=== PATIENT | female | born 1955 | race Hispanic/Latino ===

== ENCOUNTER 2018-10-04 07:28 | Observation (INO) | payer BC ==
[~2018-10-04] VITALS: Ht 157.5 cm; Wt 85.3 kg
[~2018-10-04 07:28] MED LIST: AMLODIPINE BESYL5 MG PO; BACITRACIN 50,000 UNIT VIAL ONE; CELEBREX100 MG PO; HYDROCHLOROTHIA25 MG; LOSARTAN POTASS25 MG PO; PANTOPRAZOLE SO40 MG PO; SINGULAIR10 MG; SODIUM CHLORIDE 0.9% 500ML 500 ML ONE; TRANEXAMIC ACID 1,000 MG/10 ML ML ONE; VANCOMYCIN HCL 1,000 MG ONE
[2018-10-04] MEDS ORDERED: ROPIVACAINE 246.25 MG, EPINEPHRINE HCL 1:1000 1ML 0.5 MG, CLONIDINE HCL 0.08 MG, KETORO... INJ ONE ×5 (07:30)
[2018-10-04] MEDS ORDERED: CEFAZOLIN SOD 2 GM/D5W 50ML 50 ML IV ONE (07:56)
[2018-10-04] MEDS ORDERED: DEXAMETHASONE SOD PHOS 10 MG/1 ML VIAL ONE (07:56)
[2018-10-04] MEDS ORDERED: CELECOXIB 200 MG CAP ONE (07:56)
[2018-10-04] MEDS ORDERED: GABAPENTIN 300 MG CAP ONE (07:56)
[2018-10-04] MEDS ORDERED: ZOLPIDEM TARTRATE 5 MG TAB PO PRN (11:15)
[2018-10-04] MEDS ORDERED: HYDROCODONE/APAP 5MG-325MG TAB PO PRN (11:15)
[2018-10-04] MEDS ORDERED: DIPHENHYDRAMINE HCL INJ 50 MG/ML VIAL IM/IV PRN (11:15)
[2018-10-04] MEDS ORDERED: KETOROLAC TROMETHAMINE 30 MG/ML VIAL IV PRN (11:15)
[2018-10-04] MEDS ORDERED: DOCUSATE SODIUM 100 MG CAP PO PRN (11:15)
[2018-10-04] MEDS ORDERED: ONDANSETRON HCL INJ 2MG/ML 2ML 2 MG/ML VIAL IV PRN (11:15)
[2018-10-04] MEDS ORDERED: PROMETHAZINE HCL (IM) 25 MG/ML VIAL INJ PRN (11:15)
[2018-10-04] MEDS ORDERED: ACETAMINOPHEN 650 MG SUPP PR PRN (11:15)
--- NOTE | 2018-10-04 11:53 | Diagnostic Imaging Report ---
Exam: AP and lateral portable views of the left knee dated 10/04/2018 at 11:30 AM History: Knee replacement Comparison: None available Findings: Patient is status post knee replacement with good position of the femoral and tibial prosthesis. Surgical skin paul are noted anteriorly and there is air within the joint space. Impression: Status post left total knee replacement. Signed by: Dr. Kameron Munoz DO on 10/04/2018 11:50 AM
--- OUTSIDE RECORDS SUMMARY | 2018-10-04 12:12 | XMS REPORT ---
Author Author [facility] Address Unknown Phone Unavailable Care Team Providers Care Environmental Assistant Name Role Phone MICA HERNANDEZ Unavailable Unavailable Problems This patient has no known problems. Allergies, Adverse Reactions, Alerts This patient has no known allergies or adverse reactions. Medications This patient has no known medications. Results Test Description Test Time Test Comments Text Results Atomic Results Result Comments KNEE LEFT 1-2 VIEWS 2018-10-04 11:48:00 [place] [address] Patient Name: SACHIN HACKETT MR #: [id number] : 1955 Age/Sex: 63/F Req #: [id number] [facility] Physician: Ordered by: MICA HERNANDEZ MD Report #: [id number] Location: OR Room/Bed: Procedure: [id number] DX/KNEE LEFT 1-2 VIEWS Exam Date: 10/04/18 Exam Time: 1120 REPORT STATUS: Signed Exam: AP and lateral portable views of the left knee dated 10/04/2018 at 11:30 AM History: Knee replacement Comparison: None available Findings: Patient is status post knee replacement with good position of the femoral and tibial prosthesis. Surgical skin paul are noted anteriorly and there is air within the joint space. Impression: Status post left total knee replacement. Signed by: Dr. Orquidea Munoz DO on 10/04/2018 11:50 AM Dictated By: ORQUIDEA MUNOZ DO 1150 Transcribed By: CHIDI on 10/04/18 1150 COPY TO: MICA HERNANDEZ MD
--- NOTE | 2018-10-04 12:45 | NUR ---
RECEIVED PATIENT FROM PACU. PATIENT A/O X3, EVEN RESPIRATIONS, 100% 2LNC. VITALS STABLE. RIGHT HAND 20 GAUGE IV WITH NS @ 100 MS/HR.FOOT PUMPS IN PLACE BILATERALLY, LEFT KNEE DRESSING INTACT. BOWEL SOUNDS ACTIVE, NO EDEMA. FAMILY AT BEDSIDE. CALL LIGHT IN REACH WILL CONTINUE TO MONITOR.
[2018-10-04 12:59] VITALS: BP 111/53
[2018-10-04] MEDS ORDERED: PNEUMOCOCCAL VACCINE POLYVALENT 23 MCG/0.5 ML VIAL IM SCH (12:59)
--- NOTE | 2018-10-04 13:04 | Operative Report ---
DATE OF PROCEDURE: 10/04/2018 SURGEON: Jarrell Phillips MD TRAVERSE ROD ASSEMBLER: Wade Barroso, certified PA. PREOPERATIVE DIAGNOSIS: Osteoarthritis, left knee. POSTOPERATIVE DIAGNOSIS: Osteoarthritis, left knee. PROCEDURE: Left total knee arthroplasty. INDICATIONS: The patient is a 63-year-old lady, who has end-stage arthritis of her left knee. The findings and options have been discussed. She has failed extensive conservative management and would like to proceed with a knee replacement. The risks and benefits of the procedure have been explained. All of her questions have been answered. She states she understands and wishes to proceed. PROCEDURE IN DETAIL: The patient was brought to the operating room and placed under general anesthetic. She received prophylactic antibiotics, a regional block and tranexamic acid in the holding area. Her left lower extremity was prepped and draped in a sterile manner. A preoperative time-out was performed. The extremity was exsanguinated and a proximal tourniquet was inflated to 300 mmHg. An anterior incision with a medial parapatellar arthrotomy was made. Clear synovial fluid was removed from the joint. Soft tissue releases were performed to bring the knee up into flexion with the patella everted. While the patient had a BMI of roughly 35, much of her weight was distributed to her lower extremity. Exposure and mobilization of the knee was quite challenging. Meniscal remnants and marginal osteophytes were removed. The cruciate ligaments were sacrificed. A Hwang and Nephew posterior stabilized legion knee system was used throughout the case. An extramedullary cutting guide was used to resect the proximal tibia. The tibial base plate was noted to be a size #3. The central fin punch was impacted and attention was directed towards the distal femur. An intramedullary cutting guide was used to resect the distal femur in 5 degrees of valgus and rotation referencing of a combination of landmarks including Whitesides line, the epicondylar axis and the posterior condyles. The femoral component was a size #5. The anterior and posterior cuts were made. The notch cut was made. Trial reductions were performed. A 9 mm posterior stabilized tibial insert provided appropriate soft tissue balancing in full extension and 90 degrees of flexion. The patella was resurfaced with a 32 mm x 9 mm patellar button. The thickness was checked before and after resurfacing and was 21 mm. Patellar tracking was noted to be concentric. The trial implants were then all removed. A 100 mL premixed pericapsular MEGGAN injection was placed into the surrounding soft tissue. The knee was thoroughly irrigated with a shower tip pulsatile lavage. The knee had also been irrigated throughout the case with a spray bottle containing a diluted mixture of polymyxin and vancomycin. The components were cemented into place using a single mix of Palacos cement preloaded with antibiotics. Care was taken to remove extravasated cement. The wound was further irrigated while the cement cured. The arthrotomy was carefully closed with interrupted #1 Ethibond. The knee was put through flexion and extension to ensure a secure closure. The skin was carefully closed with subcuticular Vicryl and paul. Her skin was very thin and there was abundant subcutaneous adipose tissue. Chaffee were applied. A sterile Aquacel bandage was applied. The patient was extubated and transported to the recovery room in stable condition. Blood loss was minimal. Needle and sponge counts were correct. Jarrell Phillips MD DR/HÉCTOR /[id number]
[2018-10-04] MEDS ORDERED: LIDOCAINE HCL 2% JELLY 5 ML TUBE ONE (13:11)
[2018-10-04] MEDS ORDERED: DESFLURANE 240 ML BTL INH ONE (13:11)
[2018-10-04] MEDS ORDERED: EPHEDRINE SULFATE INJ 50 MG/10 ML SYR ONE (13:11)
[2018-10-04] MEDS ORDERED: LIDOCAINE HCL 2% LOCAL INJ 5 ML SDV VIAL INJ ONE (13:11)
[2018-10-04] MEDS ORDERED: PROPOFOL IV EMULSION 10 MG/ML 20 ML VIAL ONE (13:11)
[2018-10-04] MEDS ORDERED: ONDANSETRON HCL INJ 2MG/ML 2ML 2 MG/ML VIAL ONE (13:11)
[2018-10-04] MEDS: SODIUM CHLORIDE 0.9% 1000ML 1,000 ML IV SCH (13:23)
[2018-10-04] MEDS: ACETAMINOPHEN 1000 MG/100 ML IV SCH ×2 (13:23→18:06)
[2018-10-04] MEDS: HYDROCODONE/APAP 7.5MG-325MG 1 EA TAB PO PRN (13:32)
[2018-10-04 13:35] VITALS: BP 111/53
--- NOTE | 2018-10-04 13:35 | NUR ---
Visit made by the Spiritual Care Department Pastoral Visitor, Madina Villeda. Pt sleeping with family at bedside. PV provided pastoral presence, hospitality, and supportive listening. Pastoral Visitor informed pt's family of the scope of Collection Advisor Services and availability. NAHID ARGUELLES [facility] Spiritual Care Department O: [phone] Pager: [phone] ([phone] number calling from)
[2018-10-04 13:36] VITALS: BP 111/53
[2018-10-04] MEDS ORDERED: CEFAZOLIN SOD 1 GM/NS 50ML 50 ML IV SCH (14:00)
[2018-10-04] MEDS ORDERED: ROPIVACAINE 0.5% 5 MG/ML 30 ML SDV ONE (14:17)
[2018-10-04] MEDS ORDERED: LIDOCAINE 2% /EPINEPHRINE 20 ML SDV INJ ONE (14:17)
[2018-10-04 16:05] VITALS: BP 110/55
--- NOTE | 2018-10-04 16:15 | NUR ---
PATIENT HAS VOIDED SINCE SURGERY.
[2018-10-04] MEDS: ASPIRIN 325 MG TAB PO SCH (16:27)
[2018-10-04] MEDS: CELECOXIB 200 MG CAP PO SCH (16:27)
[2018-10-04] MEDS: CEFAZOLIN SOD 1 GM/NS 50ML 50 ML IV SCH (16:27)
--- NOTE | 2018-10-04 16:28 | NUR ---
ZOFRAN PRN GIVEN FOR NAUSEA.
[2018-10-04] MEDS ORDERED: CELECOXIB 100 MG CAP PO SCH (17:00)
--- NOTE | 2018-10-04 19:00 | NUR ---
Received patient from day nurse, patient is alert and oriented, patient is on room air, introduced self to patient and patient educated on the importance of the use of the call edgar for help, patient verbalized understanding, safety and fall precautions maintained as per hospital protocvol: bed inm lowest position and locked, needed items beside bed, patient is currently stable will continue to monitor. PATIENT WILL ALSO RECEIVE ALL DUE MEDS.
[2018-10-04 20:00] VITALS: BP 110/55
[2018-10-04] MEDS ORDERED: FENTANYL CITRATE/PF 100MCG/2 ML INJ ONE (20:00)
[2018-10-04] MEDS ORDERED: MIDAZOLAM HCL 2 MG/2 ML VIAL ONE (20:00)
[2018-10-04 20:19] VITALS: BP 132/60
[2018-10-05 00:15] VITALS: BP 114/56
[2018-10-05] MEDS: SODIUM CHLORIDE 0.9% 1000ML 1,000 ML IV SCH ×2 (00:23→08:15)
[2018-10-05] MEDS: ACETAMINOPHEN 1000 MG/100 ML IV SCH ×2 (00:25→05:01)
[2018-10-05] MEDS: CEFAZOLIN SOD 1 GM/NS 50ML 50 ML IV SCH ×2 (01:45→08:15)
[2018-10-05 05:31] VITALS: BP 114/58
--- NOTE | 2018-10-05 05:41 | Consultation ---
DATE OF CONSULTATION: REASON FOR CONSULTATION: Postop medical management. HISTORY OF PRESENT ILLNESS: The patient is a 63-year-old lady status post left total knee arthroplasty, who is doing well postoperatively with minimal pain of the left knee. She denies any chest pain, fever, chills, nausea, vomiting, headache, shortness of breath, or dizziness on review of systems. PAST MEDICAL HISTORY: Significant for hypertension and reflux disease. MEDICATIONS: See MAR. ALLERGIES: NONE. SOCIAL HISTORY: , lives at home with her . Denies smoking and alcohol abuse. FAMILY HISTORY: Noncontributory. PHYSICAL EXAMINATION: VITAL SIGNS: She has temperature of 97.6, pulse 102, blood pressure 114/56, and sats 98%. GENERAL: No apparent distress, lying in bed. NECK: Supple. CARDIOVASCULAR: Regular rate and rhythm. LUNGS: Clear to auscultation bilaterally. ABDOMEN: Good bowel sounds. Soft, nontender. EXTREMITIES: No clubbing, cyanosis. NEUROLOGIC: Nonfocal. ASSESSMENT/PLAN: 1. Status post total left knee arthroplasty. Continue with pain control and start physical therapy. 2. Anemia. Check a CBC. 3. Hypertension. We will restart her medicines at discharge. 4. Reflux disease. Continue with current care. Please see hospital chart for full details. MD SHAUNA Murry/HÉCTOR /[id number]
[2018-10-05 06:30] LABS: HEMATOCRIT 32.7 % (34.2-44.1); HEMOGLOBIN 10.8 g/dL (12.0-16.0)
--- NOTE | 2018-10-05 06:46 | NUR ---
Patient endorsed to next shift for continuity of care.
[2018-10-05 07:52] VITALS: BP 117/56
[2018-10-05] MEDS: ASPIRIN 325 MG TAB PO SCH ×2 (08:15→16:02)
[2018-10-05] MEDS: CELECOXIB 200 MG CAP PO SCH ×2 (08:15→16:02)
[2018-10-05] MEDS: KETOROLAC TROMETHAMINE 30 MG/ML VIAL IV PRN ×2 (08:16→15:59)
[2018-10-05] MEDS: HYDROCODONE/APAP 7.5MG-325MG 1 EA TAB PO PRN ×2 (08:16→15:59)
--- NOTE | 2018-10-05 08:17 | NUR ---
Patient alert and responsive, no resp distress, VSS and medicated this morning for pain, PT came to work with patient and ambulated about 40 feet, sitting on chair in the room, will monitor
[2018-10-05] MEDS ORDERED: ASPIRIN325 MG PO (08:39)
[2018-10-05] MEDS ORDERED: ONDANSETRON HCL 4 MG ORAL DISINTEGRATING TAB PO PRN (09:00)
[2018-10-05 09:42] VITALS: BP 117/56
--- NOTE | 2018-10-05 11:07 | NUR ---
CASE MANAGEMENT ASSESSMENT Certified Phlebotomist to bedside to discuss plan of care with patient/family. CM/SW role and care transitions discussed. Anticipated discharge plan discussed along with duration of care. CM/SW discussed patients right to make decisions in care. CM/SW work hours given. Patient lives: with and granddaughter Admit/Transfer: thru PACU Hospital/ER visits since last admit: 0 POA/Emergency contact: Tony Wyatt [phone] Current/Previous Home Health: none previously, Home health referral was faxed to [facility] by Dr. Phillips's office. CM called and spoke to Mariana at [facility]. She stated they did not have referral. CM informed Carla at Dr. Phillips's office. She refaxed orders and Mariana verified she has received it. Will call CM once benefits are verified. PCP/Follow-up Care: will follow up with Dr. Phillips next week Current/Previous DME: DUNCAN gomez, CPM has been delivered to pt's house. Medications (referring to index hospitalization or the first time you were in the hospital) a. Were changes made in your medications when you were in the hospital on [date of index hospitalization]? n/a b. Did you understand the changes? n/a c. Were you able to obtain your new medications right away? n/a d. Were you able to take your medications like the doctor wanted you to? n/a e. Did the hospital give you an accurate, easy to understand list of medications when you left? n/a Scale of 1-10 how comfortable does patient feel with disease management in outpatient settin Other Services: none Employment Status: unemployed Areas of Concerns: recent surgery Referral Needs: home health Education Needs: post operative care, medical management IMM/IBRAHIM given and signed (if applicable): n/a Goal for discharge: home with home health CM/SW left business card at the bedside with contact information. Name and number was also written on the patients whiteboard. Patient verbalized understanding of discussion. CM will follow-up with ongoing discharge and transition of care needs.
[2018-10-05] MEDS ORDERED: ACETAMINOPHEN 1000 MG/100 ML IV PRN (11:15)
[2018-10-05 11:47] VITALS: BP 127/60
--- NOTE | 2018-10-05 13:30 | NUR ---
Received call from Mariana with [facility]. She stated they are unable to accept pt. ZHANG informed Marla with Dr. Phillips's office. Marla states she will set up outpatient therapy for pt. Will contact pt once everything set up. ZHANG spoke to pt at bedside and informed her that Marla is setting up outpatient therapy for her. Pt states that she is unable to go to outpatient therapy because she will not have a ride. ZHANG contacted Marla and let her know.
--- NOTE | 2018-10-05 14:30 | NUR ---
ZHANG went to Dr. Phillips's office and spoke to Marla and MARIN Olvera. Was informed that home health was saying that pt would have a $200 copay per visit. Wade stated that pt would get better therapy at an outpatient clinic. ZHANG spoke to pt at bedside and informed her of above. Pt now agreeable with outpatient therapy. She stated her can take off work this week and next week to take her to outpatient therapy. Stated she will have her daughter help with transportation as well if needed. Choice letter signed and placed in chart. Copy to pt. ZHANG informed Marla that pt is agreeable. Marla faxed the referral to outpatient rehab and will contact pt.
--- NOTE | 2018-10-05 15:11 | NUR ---
Patient alert and responsive, spoke with MY-[facility] and home agency not able to receive patient and Dr. Phillips's office now setting up out patient rehab for patient and CM states patient is aggreable to this.
--- NOTE | 2018-10-05 15:14 | NUR ---
Second session PT completed and patient OOB and sitting on chair in the room
[2018-10-05] MEDS ORDERED: PNEUMOCOCCAL VACCINE POLYVALENT 23 MCG/0.5 ML VIAL IM SCH (15:45)
[2018-10-05 16:07] VITALS: BP 128/62
--- NOTE | 2018-10-05 16:18 | NUR ---
Medicated patient for pain, getting ready at this time to go home and still c/o pain to left knee on movement. Will medicate for comfort
== END 2018-10-05 16:36 | disposition home or self-care (01) ==
LOC: OR 07:28 → PACU V 11:02 → MED/SURG 12:40
PROVIDERS: ADMIT Specialist; ATTEND Specialist
DX: M17.12 Unilateral primary osteoarthritis, left knee (principal); K29.70 Gastritis, unspecified, without bleeding; I10 Essential (primary) hypertension; K21.9 Gastro-esophageal reflux disease without esophagitis; D64.9 Anemia, unspecified; Z23 Encounter for immunization
CPT/HCPCS: 27447; 36415; 73560; 85014; 85018; 86850; 86900; 86920; 90732; 97110; 97116; 97162; 97530; G0009; G0378 ×2; J0131 ×2; J0171; J0690 ×3; J1100; J1885 ×2; J2001 ×3; J2250; J2405 ×2; J2704; J2795; J3370; J7030 ×2; J7040

== ENCOUNTER 2018-10-17 10:32 | Outpatient (RCR) | payer BC ==
[~2018-10-17 10:32] MED LIST changes: +ASPIRIN325 MG PO; -BACITRACIN 50,000 UNIT VIAL ONE; -SODIUM CHLORIDE 0.9% 500ML 500 ML ONE; -TRANEXAMIC ACID 1,000 MG/10 ML ML ONE; -VANCOMYCIN HCL 1,000 MG ONE
== END 2018-10-18 ==
LOC: PT 10:32
PROVIDERS: ATTEND Specialist
DX: Z47.1 Aftercare following joint replacement surgery (principal)

== ENCOUNTER → 2018-11-18 | Outpatient (RCR) | payer BC | LOC: PT 10-21 13:24 | PROVIDERS: ATTEND Specialist | DX: Z47.1 Aftercare following joint replacement surgery (principal); Z96.652 Presence of left artificial knee joint; M62.81 Muscle weakness (generalized); M25.562 Pain in left knee ==

== ENCOUNTER 2018-12-16 13:00 | Outpatient (RCR) | payer BC | END 2018-12-18 | LOC: PT 13:00 | PROVIDERS: ATTEND Specialist | DX: Z96.652 Presence of left artificial knee joint (principal); Z47.1 Aftercare following joint replacement surgery; M25.562 Pain in left knee; M62.81 Muscle weakness (generalized) ==

== ENCOUNTER 2019-01-12 13:00 | Outpatient (RCR) | payer BC | END 2019-01-18 | LOC: PT 13:00 | PROVIDERS: ATTEND Specialist | DX: Z96.652 Presence of left artificial knee joint (principal); Z47.1 Aftercare following joint replacement surgery; M25.562 Pain in left knee; M62.81 Muscle weakness (generalized) ==

== ENCOUNTER 2019-04-17 07:20 | Observation (INO) | payer BC ==
[~2019-04-17] VITALS: Ht 160 cm; Wt 87.3 kg
[~2019-04-17 07:20] MED LIST changes: +BACITRACIN 50,000 UNIT VIAL ONE; +CLARITIN-D 241 EACH PO; +SODIUM CHLORIDE 0.9% 500ML 500 ML ONE; +TRANEXAMIC ACID 1,000 MG/10 ML ML ONE; +VANCOMYCIN HCL 1,000 MG ONE
[2019-04-17] MEDS ORDERED: ROPIVACAINE 246.25 MG, EPINEPHRINE HCL 1:1000 1ML 0.5 MG, CLONIDINE HCL 0.08 MG, KETORO... INJ ONE ×5 (07:30)
[2019-04-17] MEDS ORDERED: CELECOXIB 200 MG CAP ONE (07:55)
[2019-04-17] MEDS ORDERED: DEXAMETHASONE SOD PHOS 10 MG/1 ML VIAL ONE (07:55)
[2019-04-17] MEDS ORDERED: GABAPENTIN 300 MG CAP ONE (07:56)
[2019-04-17] MEDS ORDERED: CEFAZOLIN SOD 1 GM/NS 50ML 100 ML IV ONE (07:56)
[2019-04-17] MEDS ORDERED: SODIUM CHLORIDE 0.9% 1000ML 1,000 ML IV SCH (10:42)
[2019-04-17] MEDS ORDERED: HYDROCODONE/APAP 7.5MG-325MG 1 EA TAB PO PRN (10:45)
[2019-04-17] MEDS ORDERED: PROMETHAZINE HCL (IM) 25 MG/ML VIAL IM PRN (10:45)
[2019-04-17] MEDS ORDERED: HYDROCODONE/APAP 5MG-325MG TAB PO PRN (10:45)
[2019-04-17] MEDS ORDERED: ACETAMINOPHEN 650 MG SUPP PR PRN (10:45)
[2019-04-17] MEDS ORDERED: KETOROLAC TROMETHAMINE 30 MG/ML VIAL IV PRN (10:45)
[2019-04-17] MEDS ORDERED: DIPHENHYDRAMINE HCL INJ 50 MG/ML VIAL IM/IV PRN (10:45)
[2019-04-17] MEDS ORDERED: DOCUSATE SODIUM 100 MG CAP PO PRN (10:45)
[2019-04-17] MEDS: ACETAMINOPHEN 1000 MG/100 ML IV SCH ×3 (12:00→23:10)
[2019-04-17] MEDS ORDERED: FENTANYL CITRATE/PF 100MCG/2 ML INJ ONE ×2 (12:18→13:38)
--- NOTE | 2019-04-17 12:28 | Diagnostic Imaging Report ---
EXAMINATION: KNEE RIGHT 1-2 VIEWS INDICATION: Postoperative COMPARISON: None FINDINGS: Portable AP and lateral views of the right knee demonstrate immediate postoperative findings of right total knee replacement. Alignment is anatomic. No unexpected fracture. Postoperative subcutaneous emphysema. Surgical skin paul in place. Small joint effusion. IMPRESSION: Anatomic alignment status post right total knee replacement. Signed by: Roly Young MD on 04/17/2019 12:25 PM
[2019-04-17] MEDS ORDERED: MIDAZOLAM HCL 2 MG/2 ML VIAL ONE (13:38)
[2019-04-17] MEDS ORDERED: MORPHINE SULFATE INJ 10 MG/ML ONE (13:38)
[2019-04-17] MEDS ORDERED: ROPIVACAINE 0.5% 5 MG/ML 30 ML SDV ONE (13:50)
[2019-04-17] MEDS ORDERED: ONDANSETRON HCL INJ 2MG/ML 2ML 2 MG/ML VIAL ONE ×2 (14:51→18:34)
[2019-04-17] MEDS ORDERED: CELECOXIB 100 MG CAP PO SCH (17:00)
--- NOTE | 2019-04-17 17:24 | NUR ---
RECEIVED PATIENT FROM PACU. PATIENT A/O X3, EVEN RESPIRATIONS ON 2LNC. LUNG SOUNDS CLEAR TO AUSCULTATION. RIGHT HAND 20 GAUGE IV WITH NS @ 100 CC/HR. PATIENT HAS VOIDED SINCE SURGERY. RIGHT KNEE DRESSING CLEAN, DRY, AND INTACT. ICE PACK IN PLACE. FRANCESCA HOSE IN PLACE BILATERALLY. FOOT PUMPS BILATERALLY. PAIN 2/10 RIGHT KNEE. PRN PAIN MEDICATION AVAILABLE. ORIENTED PATIENT TO ROOM AND CALL LIGHT. BED LOW, WHEELS LOCKED, SIDE RAILS X2. CALL LIGHT IN REACH WILL CONTINUE TO MONITOR PATIENT.
[2019-04-17 17:47] VITALS: BP 109/59
[2019-04-17 18:17] VITALS: BP 109/59
[2019-04-17] MEDS: ASPIRIN 325 MG TAB PO SCH (18:17)
[2019-04-17] MEDS: CEFAZOLIN SOD 1 GM/NS 50ML 50 ML IV SCH ×2 (18:17→23:58)
[2019-04-17] MEDS: CELECOXIB 200 MG CAP PO SCH (18:17)
[2019-04-17 18:20] VITALS: BP 109/59
[2019-04-17] MEDS ORDERED: SEVOFLURANE INHAL SOLN 250 ML PEN BTL ONE (18:34)
[2019-04-17] MEDS ORDERED: PROPOFOL IV EMULSION 10 MG/ML 20 ML VIAL ONE (18:34)
[2019-04-17] MEDS ORDERED: LIDOCAINE HCL 2% LOCAL INJ 5 ML SDV VIAL INJ ONE (18:34)
[2019-04-17] MEDS ORDERED: ACETAMINOPHEN 1000 MG/100 ML IV ONE (18:34)
[2019-04-17 19:02] VITALS: BP 109/59
[2019-04-17] MEDS: ONDANSETRON HCL INJ 2MG/ML 2ML 2 MG/ML VIAL IV PRN (19:12)
--- NOTE | 2019-04-17 19:32 | Operative Report ---
DATE OF PROCEDURE: 04/17/2019 SURGEON: Jarrell Phillips MD JOURNEYMAN SHEET METAL WORKER: Wade Barroso, certified PA. PREOPERATIVE DIAGNOSIS: Osteoarthritis, right knee. POSTOPERATIVE DIAGNOSIS: Osteoarthritis, right knee. PROCEDURE: Right total knee arthroplasty. INDICATIONS: The patient is a 63-year-old lady, who has end-stage arthritis of her right knee. She has failed conservative management and would like to proceed with a right knee replacement. She has been through a left knee replacement and is familiar with the procedure. I have reviewed the risks and benefits. She states she understands and wishes to proceed. PROCEDURE IN DETAIL: The patient was brought to the operating room and placed under general anesthetic. Her right lower extremity was prepped and draped in a sterile manner. A preoperative time-out was performed. She received a regional block, tranexamic acid and prophylactic antibiotics in the holding area. The extremity was exsanguinated and a proximal tourniquet was inflated to 300 mmHg. An anterior incision with a medial parapatellar arthrotomy was performed. Clear synovial fluid was removed from the joint. Soft tissue releases were performed to bring the knee up into flexion with the patella everted. Meniscal remnants, marginal osteophytes and the cruciate ligaments were sacrificed. A Hwang and Nephew posterior stabilized Legion Knee System was used throughout the case. An extramedullary cutting guide was used to resect the proximal tibia. The tibial base plate was noted to be a size #3. The central fin punch was impacted and attention was directed towards the distal femur. An intramedullary cutting guide was used to resect the distal femur in 6 degrees of valgus and rotation, referencing off a combination of landmarks including Whitesides line, the epicondylar axis and the posterior condyles. The femoral component was a size #5. The anterior, posterior and notch cuts were made. Trial reductions were performed. A 9 mm posterior stabilized tibial insert provided appropriate soft tissue balancing in both full extension and 90 degrees of flexion. The patella was resurfaced with a 32 mm x 7.5 mm patellar button. The thickness was checked before and after resurfacing and was right around 22 mm. Patellar tracking was noted to be concentric. The trial implants were then all removed. A 100 mL premixed pericapsular MEGGAN injection was placed into the surrounding soft tissue. The knee was thoroughly irrigated with a shower tip pulsatile lavage. All bone cuts had been irrigated with a diluted mixture of polymyxin and vancomycin spray. The components were cemented into place using a single mix of high viscosity Palacos cement preloaded with antibiotics. Care was taken to remove all extravasated cement. The wounds were then further irrigated while the cement cured. The arthrotomy was closed using interrupted #1 Ethibond. The skin was closed with subcuticular Vicryl and paul. Prior to skin closure, the knee was put through flexion and extension to ensure a secure closure. The wound was also closed over 500 mg of vancomycin powder. A sterile Aquacel bandage was applied. The patient was extubated and transported to the recovery room in stable condition. Blood loss was minimal. All needle and sponge counts were correct. Jarrell Phillips MD DR/HÉCTOR /[id number]
[2019-04-17 19:58] VITALS: BP 123/56
[2019-04-17] MEDS ORDERED: ZOLPIDEM TARTRATE 5 MG TAB PO PRN (21:00)
[2019-04-17 21:03] VITALS: BP 123/56
[2019-04-18 00:23] VITALS: BP 113/62
[2019-04-18 04:35] VITALS: BP 117/61
[2019-04-18] MEDS: ACETAMINOPHEN 1000 MG/100 ML IV SCH (06:31)
[2019-04-18 06:32] LABS: HEMATOCRIT 33.7 % (34.2-44.1); HEMOGLOBIN 11.3 g/dL (12.0-16.0)
[2019-04-18 08:03] VITALS: BP 129/60
[2019-04-18 08:13] VITALS: BP_SYST 129; BP_SYST 152; BP_DIAS 105; BP_DIAS 60
[2019-04-18] MEDS: ASPIRIN 325 MG TAB PO SCH (09:01)
[2019-04-18] MEDS: CELECOXIB 200 MG CAP PO SCH (09:01)
[2019-04-18] MEDS: CEFAZOLIN SOD 1 GM/NS 50ML 50 ML IV SCH (09:01)
[2019-04-18] MEDS: ONDANSETRON HCL INJ 2MG/ML 2ML 2 MG/ML VIAL IV PRN (09:02)
--- NOTE | 2019-04-18 10:24 | NUR ---
WAS CALLING OT CONFIRM ORDERS SET UP THROUGH DR CARMONA OFFICE, WAS ORIGINALLY INFORMED THAT [facility] [phone] WAS PROVIDING DME, THEY ARE NOT IN NETWORK. WAS TOLD [facility] [phone] SPOKE WITH [facility] AND THEY ARE NOT IN NETWORK, THE REFERRAL WAS FORWARDED TO [facility] PER [facility] THEY ARE NOT IN NETWORK. CONTACTED DANIEL AT DR CARMONA OFFICE WAS GIVEN INFORMATION ON [facility] [employer] WITH [facility] WILL PROVIDE DME, CALLED AND CONFIRMED AND THEY ARE ACCEPTING THE PATIENT. WAITING MORNING SHOW PRODUCER BACK TO GET [facility] IN NETWORK TO BE ABLE TO SET UP HOME HEALTH, DANIEL WITH [facility]TH[facility] OFFICE IS ASSISTING.
[2019-04-18] MEDS ORDERED: ACETAMINOPHEN 1000 MG/100 ML IV PRN (10:45)
--- NOTE | 2019-04-18 11:35 | Consultation ---
DATE OF CONSULTATION: REASON FOR CONSULTATION: Postoperative medical management. HISTORY OF PRESENT ILLNESS: The patient is a 63-year-old lady, status post right total knee arthroplasty, end-stage osteoarthritis. She is doing well postoperatively with minimal pain and denies any fever, chills, nausea, vomiting, headache, shortness of breath, or dizziness. PAST MEDICAL HISTORY: Significant for reflux disease, hypertension, and osteoarthritis. MEDICATIONS: See MAR. ALLERGIES: NONE. SOCIAL HISTORY: Denies alcohol and tobacco abuse. FAMILY HISTORY: Noncontributory at this time. PHYSICAL EXAMINATION: VITAL SIGNS: Temperature 96.8, pulse 95, blood pressure 113/62, saturations 95%. GENERAL: No apparent distress, lying in bed. NECK: Supple. CARDIOVASCULAR: Regular rate and rhythm. LUNGS: Clear to auscultation bilaterally. ABDOMEN: Good bowel sounds. Soft, nontender. EXTREMITIES: No clubbing or cyanosis. NEUROLOGIC: Nonfocal. ASSESSMENT/PLAN: 1. Right knee pain, continue with postoperative care. 2. Anemia, check a CBC. 3. Hypertension. We will restart her medicines at discharge. 4. Reflux disease. We will restart the Protonix at discharge. Please see hospital chart for full details. MD SHAUNA Murry/HÉCTOR /[id number]
[2019-04-18 11:38] VITALS: BP 118/57
--- NOTE | 2019-04-18 11:47 | NUR ---
DR CARMONA OFFICE PREARRANGED FOLLOWING DISCHARGE PLAN OF: RETURN HOME [place] [facility] [place] [address] [address] HOME HEALTH WITH [facility] CONFIRMED WITH [facility] [phone] DME 3 IN ONE COMMODE. CPM AND ROLLING WALKER WITH WHEELS. PROVIDED BY [employer] [phone] [facility]
--- NOTE | 2019-04-18 12:08 | NUR ---
Patient states "My doctor said he faxed rx to my pharmacy."
--- NOTE | 2019-04-18 12:36 | NUR ---
Right hand IV discontinued. No signs of infiltration noted. 2x2 gauze and tape placed. Taken via wheelchair by PCP to personal car. Accompanied by . Right knee dressing clean, dry, and intact. Discharge instructions, personal belonging, CPM machine , and walker taken with patient. RX for pain will be faxed to pharmacy by .
== END 2019-04-18 12:36 | disposition home health service (06) ==
LOC: OR 07:20 → PACU V 10:44 → MED/SURG 17:23
PROVIDERS: ADMIT Specialist; ATTEND Specialist
DX: M17.11 Unilateral primary osteoarthritis, right knee (principal); K21.9 Gastro-esophageal reflux disease without esophagitis; G47.33 Obstructive sleep apnea (adult) (pediatric); I10 Essential (primary) hypertension; E78.5 Hyperlipidemia, unspecified; D64.9 Anemia, unspecified; I83.90 Asymptomatic varicose veins of unspecified lower extremity; K29.70 Gastritis, unspecified, without bleeding; Z96.652 Presence of left artificial knee joint
CPT/HCPCS: 27447; 36415; 73560; 85014; 85018; 86850; 86900; 86920; 97116; 97162; C1713 ×2; G0378 ×2; J0131 ×2; J0171; J0690 ×2; J1100; J1885 ×2; J2001; J2250; J2270; J2405 ×2; J2704; J2795; J3010; J3370; J7030; J7040

== ENCOUNTER 2019-08-18 15:00 | Outpatient (RCR) | payer BC, OTHER ==
[~2019-08-18 15:00] MED LIST changes: -BACITRACIN 50,000 UNIT VIAL ONE; -SODIUM CHLORIDE 0.9% 500ML 500 ML ONE; -TRANEXAMIC ACID 1,000 MG/10 ML ML ONE; -VANCOMYCIN HCL 1,000 MG ONE
== END 2019-08-19 ==
LOC: PT 15:00
PROVIDERS: ATTEND Specialist
DX: Z96.651 Presence of right artificial knee joint (principal); M25.561 Pain in right knee; M25.661 Stiffness of right knee, not elsewhere classified

== ENCOUNTER 2019-09-05 15:00 | Outpatient (RCR) | payer OTHER | END 2019-09-19 | LOC: PT 15:00 | PROVIDERS: ATTEND Specialist | DX: Z96.651 Presence of right artificial knee joint (principal) ==

== ENCOUNTER → 2021-05-02 | Day surgery (SDC) | payer OTHER ==
[~2021-05-02] MED LIST changes: +ALLEGRA-D 24 H1 EACH PO; +FAMOTIDINE20 MG PO; +FENTANYL CITRATE/PF 100MCG/2 ML INJ ONE; +HYOSCYAMINE SULFATE 0.5 MG/ML INJ ONE; +LIDOCAINE HCL 2% LOCAL INJ 5 ML SDV VIAL INJ ONE; +METOCLOPRAMIDE HCL 10 MG/2ML VIAL ONE; +MIDAZOLAM HCL 2 MG/2 ML VIAL ONE; +PROPOFOL IV EMULSION 10 MG/ML 20 ML VIAL ONE
[2021-05-02 12:40] VITALS: BP 125/69
== END | disposition home or self-care (01) ==
LOC: OR 08:59
PROVIDERS: ATTEND Internal Medicine Gastroenterology
DX: K21.9 Gastro-esophageal reflux disease without esophagitis (principal); D12.0 Benign neoplasm of cecum; D12.2 Benign neoplasm of ascending colon; K29.50 Unspecified chronic gastritis without bleeding; K52.9 Noninfective gastroenteritis and colitis, unspecified; K20.90 Esophagitis, unspecified without bleeding; K57.30 Diverticulosis of large intestine without perforation or abscess without bleeding; K64.8 Other hemorrhoids; G47.33 Obstructive sleep apnea (adult) (pediatric); E66.9 Obesity, unspecified; I10 Essential (primary) hypertension; Z01.810 Encounter for preprocedural cardiovascular examination; Z01.812 Encounter for preprocedural laboratory examination; Z20.822 Contact with and (suspected) exposure to COVID-19; Z79.899 Other long term (current) drug therapy; Z68.34 Body mass index [BMI] 34.0-34.9, adult; Z80.0 Family history of malignant neoplasm of digestive organs
CPT/HCPCS: 43239; 45384; 93005; J1980; J2001; J2250; J2765; J3010; U0002